=== PATIENT | male | born 1995 | race Caucasian/White ===

== ENCOUNTER → 2017-04-07 | Outpatient (CLI) | payer OTHER ==
--- NOTE | 2017-04-07 11:31 | RAD ---
Exam performed: X-ray abdomen , supine and upright. Clinical Indication: Left lower quadrant pain for a few days Date of Service: 04/07/17 Comparison: Acute abdominal series from 11/10/05 Supine radiograph of the abdomen and pelvis reveals no evidence of ileus or obstruction. Definite pathologic calcification or organomegaly is not identified. The visualized osseous structures appear unremarkable. Impression: 1. Negative exam
== END | disposition home or self-care (01) ==
LOC: RAD 10:55
PROVIDERS: ATTEND Nurse Practitioner Family
DX: R10.32 Left lower quadrant pain (principal)
CPT/HCPCS: 74020

== ENCOUNTER 2017-11-25 21:52 | Emergency (ER) | payer OTHER ==
[~2017-11-25] VITALS: Ht 180.3 cm; Wt 68.2 kg
[2017-11-25 21:52] VITALS: BP 118/67
--- NOTE | 2017-11-25 22:14 | ED.ADGEN ---
Past History Past Medical History: No Pertinent History Past Surgical History: No Surgical History Alcohol Use: Occasionally Drug Use: None Adult General HPI HPI Patient is a 22 year old male who presents with right hand injury. Patient states he was descending some stairs. He lost his footing and fell forward. He struck his right hand on the hand rail. The accident happened 1 hour ago. He presents to the ER now complaining of pain and swelling to the dorsal aspect of the right hand. He did not sustain additional injury. No other complaints this evening. His last tetanus shot was 2 years earlier Review of Systems Review of Systems Constitutional: Denies fever or chills Eyes: Denies change in visual acuity Cardiovascular: Negative GI: negative Musculoskeletal: no back or neck pain Integument: minor abrasions to hand Neurologic: Denies headache All other systems were reviewed and found to be within normal limits, except as documented in this note. Current Medications Current Medications Current Medications Medications (Trade) Dose Ordered Sig/Henrique Start Time Stop Time Status Last Admin Dose Admin Ibuprofen (Motrin) 800 mg 1X ONCE 11/25/17 23:45 11/25/17 23:45 DC Allergies Allergies Allergies Coded Allergies Type Severity Reaction Last Updated Verified No Known Drug Allergies 11/25/17 No Physical Exam Physical Exam Constitutional: Well developed, well nourished, no acute distress, non-toxic appearance. HENT: Normocephalic, atraumatic, bilateral external ears normal, oropharynx moist Neck: Normal range of motion Skin: Warm, dry, no erythema Extremities: Minor abrasion present over the dorsal aspect of the right hand in the area of the fifth metacarpal bone. Sensation light touch is intact. Capillary refill is less than 2 seconds. Neurologic: Alert and oriented X 3 Psychologic: Affect normal Current Patient Data Vital Signs Vital Signs Date Time Temp Pulse Resp B/P (MAP) Pulse Ox O2 Delivery O2 Flow Rate FiO2 11/25/17 21:52 98.1 80 16 98 Room Air EKG EKG [] Radiology/Procedures Radiology/Procedures Comminuted fracture through the distal aspect of the fifth metacarpal bone. There is no joint involvement. Course & Med Decision Making Course & Med Decision Making Pertinent Labs and Imaging studies reviewed. (See chart for details) Patient is seen and examined in the ER. X-rays are ordered. He is offered pain medication but declines the need. Ulnar gutter splint was placed to the right forearm. The third fourth and fifth digits were placed in increased flexion. I did a post splint check. He had good capillary refill and sensation light touch was intact distal to the splint. Patient is discharged to home. He is provided ibuprofen for pain as well as [place] to use for severe pain. Opiate precautions are discussed. The patient is given a consult to follow-up with Dr. Calles. Splint cares also discussed. All of his questions are answered prior to discharge and the patient is agreeable to the plan of care. Final Impression Final Impression Boxer's Fracture Anna Disclaimer [place] Disclaimer This electronic medical record was generated, in whole or in part, using a voice recognition dictation system. SANDRA DIGGS DO November 25, 2017 22:14
--- NOTE | 2017-11-25 22:37 | RAD ---
Three-view right hand dated 11/25/2017. No comparison available. CLINICAL INDICATION: Pain after injury. Fell downstairs. FINDINGS: 3 views right hand show comminuted fracture of the fifth metacarpal neck with volar angulation at the fracture site. Minimal displacement. No additional fractures are seen. Alignment otherwise anatomic. IMPRESSION: Comminuted angulated fracture of the fifth metacarpal Electronically signed by: Adalid Riddle MD (11/25/2017 10:34 PM) [facility]
[2017-11-25] MEDS ORDERED: IBUP800T19 PO (23:14)
[2017-11-25] MEDS ORDERED: HYDR-971 PO (23:22)
[2017-11-25] MEDS ORDERED: IBUPROFEN 800 MG TABLET. PO ONE (23:45)
== END 2017-11-25 23:25 | disposition home or self-care (01) ==
LOC: ER 21:52
DX: S62.396A Other fracture of fifth metacarpal bone, right hand, initial encounter for closed fracture (principal); W01.198A Fall on same level from slipping, tripping and stumbling with subsequent striking against other object, initial encounter; Y93.01 Activity, walking, marching and hiking; Y99.8 Other external cause status; Y92.89 Other specified places as the place of occurrence of the external cause
CPT/HCPCS: 29125; 73130; 99284

== ENCOUNTER → 2019-04-20 | Outpatient (CLI) | payer OTHER ==
[~2019-04-20] MED LIST: HYDR-3165 PO; IBUP800T19 PO
--- NOTE | 2019-04-20 09:37 | RAD ---
EXAM: Left ankle, 2 views; left foot, 2 views. HISTORY: Pain. COMPARISON: None. FINDINGS: 2 views of the left ankle and foot are obtained. There is subchondral lucency along the medial talar dome measuring 9 mm, likely an osteochondral lesion. The ankle mortise is intact. IMPRESSION: Suspected osteochondral lesion involving the medial talar dome. Electronically signed by: Carmela Nation MD (04/20/2019 9:34 AM) [facility]
--- NOTE | 2019-04-20 09:37 | RAD ---
EXAM: Left ankle, 2 views; left foot, 2 views. HISTORY: Pain. COMPARISON: None. FINDINGS: 2 views of the left ankle and foot are obtained. There is subchondral lucency along the medial talar dome measuring 9 mm, likely an osteochondral lesion. The ankle mortise is intact. IMPRESSION: Suspected osteochondral lesion involving the medial talar dome. Electronically signed by: Carmela Nation MD (04/20/2019 9:34 AM) [facility]
== END | disposition home or self-care (01) ==
LOC: PMG 09:14
PROVIDERS: ATTEND Physician Assistant
DX: M25.572 Pain in left ankle and joints of left foot (principal); M79.672 Pain in left foot
CPT/HCPCS: 73600; 73620